=== PATIENT | male | born 1950 | race Caucasian/White ===

== ENCOUNTER 2020-01-08 12:55 | Day surgery (SDC) | payer MEDICARE ==
[~2020-01-08] VITALS: Ht 185.4 cm; Wt 85.4 kg
[~2020-01-08 12:55] MED LIST: SILD25T PO
[2020-01-08] MEDS ORDERED: SYNOVACIN500 MG (13:31)
--- NOTE | 2020-01-08 13:45 | NUR ---
01/08/20 1345 Danita Layne PER PT, HEART RATE NEVER GOES ABOVE 60. DR. LOYD NOTIFIED.
== END 2020-01-08 14:57 | disposition home or self-care (01) ==
LOC: ORSCSDS 12:55
PROVIDERS: Internal Medicine Gastroenterology
PROC: 0DBL8ZX Excision of Transverse Colon, Via Natural or Artificial Opening Endoscopic, Diagnostic (ICD-10-PCS; principal; 2020-01-08 14:15)
PROC: 0DBM8ZX Excision of Descending Colon, Via Natural or Artificial Opening Endoscopic, Diagnostic (ICD-10-PCS; principal; 2020-01-08 14:15)
DX: Z12.11 Encounter for screening for malignant neoplasm of colon (principal); Z80.0 Family history of malignant neoplasm of digestive organs; D12.3 Benign neoplasm of transverse colon; D12.4 Benign neoplasm of descending colon
CPT/HCPCS: 88305; J2704; J7120

== ENCOUNTER 2022-04-12 12:18 | Day surgery (SDC) | payer OTHER ==
[~2022-04-12] VITALS: Ht 185.4 cm; Wt 88.8 kg
[~2022-04-12 12:18] MED LIST changes: +LORA10ER PO; +SYNOVACIN500 MG PO; +Voltaren100 GM TOP
--- NOTE | 2022-04-12 12:58 | NUR ---
Ambulatory in Day Surgery History, Chart, Medications and Allergies reviewed before start of procedure.Patient confirms NPO status and agrees with scheduled surgery. Pre-Op teaching done. Pt verbalizes understanding.
--- NOTE | 2022-04-12 17:14 | NUR ---
SHIFT SUMMARY: PATIENT CAME BACK FROM PACU TODAY AT 1700. POD 0 RIGHT TOTAL KNEE PATIENT IS A&OX4. HE HAS A SOFT BP AND SLIGHTLY LOWER HR BUT OTHERWISE VS ARE WNL AND IS ON RA. PATIENT DENIES PAIN AT THIS TIME. HE HAD A SPINAL DURING THE PROCEDURE AND CAN NOT FEEL FROM HIS HIPS DOWN BUT IS ABLE TO WIGGLE HIS TOES WHEN ASKED. HE HAS GAUZE AND FOAM TAPE ON THE RIGHT HIP THAT ARE C/D/I WITH POLAR PACK IN PLACE. HE IS TOLERATING SMALL AMOUNTS OF PO INTAKE. IS AT BEDSIDE. CALL LIGHT WITHIN REACH.
[2022-04-13 05:16] LABS: BASOPHILS ABSOLUTE AUTO 0.02 K/mm3 (0.00-0.23); BASOPHILS PERCENT AUTO 0 % (0-2); EOSINOPHILS ABSOLUTE AUTO 0.08 K/mm3 (0.00-0.68); EOSINOPHILS PERCENT AUTO 1 % (0-6); Hematocrit 39.1 % (37.0-53.0); Hemoglobin 13.3 g/dL (13.5-17.5); IMMATURE GRAN ABSOLUTE AUTO 0.03 K/mm3 (0.00-0.10); IMMATURE GRAN PERCENT AUTO 0 % (0-1); LYMPHOCYTES ABSOLUTE AUTO 1.75 K/mm3 (0.84-5.20); LYMPHOCYTES PERCENT AUTO 17 % (21-46); MONOCYTES PERCENT AUTO 8 % (4-13); Mean Corpuscular HGB 30.6 pg (26.0-34.0); Mean Corpuscular Volume 90 fL (80-100); Mean Platelet Volume 9.2 fL (9.1-12.4); NEUTROPHILS ABSOLUTE AUTO 7.78 K/mm3 (1.96-9.15); NEUTROPHILS PERCENT AUTO 74 % (41-73); Platelet Count 253 K/mm3 (150-400); RDW Coefficient Variation 12.4 % (11.7-14.2); RDW Standard Deviation 41.3 fL (35.1-46.3); Red Blood Cell Count 4.34 M/mm3 (4.30-5.90); White Blood Cell Count 10.46 K/mm3 (4.00-11.30)
[2022-04-13 05:46] LABS: Magnesium, Blood 1.9 mg/dL (1.6-2.4)
[2022-04-13 05:50] LABS: Bun/Creatinine Ratio 18.7 (12.0-20.0); Calcium, Blood 8.6 mg/dL (8.5-10.1); Creatinine, Blood 0.91 mg/dL (0.60-1.20)
--- NOTE | 2022-04-13 07:17 | NUR ---
SHIFT SUMMARY: PODx1 RIGHT TKA. DRESSING REMAINS C/D/I AT THIS TIME. MEDICATED FOR PAIN X2 DURING THE SHIFT. RESPONDED WELL. TOLERATING PO FLUIDS AND DIET. PT UP TO AMB TO THE BATHROOM. EATING, DRINKING, VOIDING. REPORTS FEELING STEADY WHEN STANDING. POLAR PACK REMAINS IN PLACE. RESTING COMFORTABLY WITH CALL LIGHT IN REACH.
[2022-04-13] MEDS ORDERED: ASPI81CH PO (09:35)
[2022-04-13] MEDS ORDERED: PROM25 PO (09:36)
[2022-04-13] MEDS ORDERED: OXYC5 PO (09:36)
--- NOTE | 2022-04-13 09:39 | NUR ---
Pt. is up walking in his room with a walker. Pt. welcomes my visit. 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 Establish rapport quickly. Facilitate short life review. Pt. displays evidence of being engaged and aware. Prayed with Pt. Pt. verbalized gratitude for the spiritual care visit.
--- NOTE | 2022-04-13 10:42 | NUR ---
DISCHARGE PATIENT CLEARED THERAPY WELL. EATING, DRINKING, AND VOIDING WELL. PAIN MANAGED PER EMAR. DISCUSSED DISCHARGE INSTRUCTIONS AND SENT WITH PATIENT. PATIENT AWAITING RIDE.
--- NOTE | 2022-04-13 11:29 | NUR ---
patient escorted out via w/c
== END 2022-04-13 11:20 | disposition home or self-care (01) ==
LOC: ORSCMMR 12:18 → ORD 14:00 → SURS 16:43 → ORSCMMR 04-13 11:20
PROVIDERS: Orthopaedic Surgery
PROC: 0SRC0J9 Replacement of Right Knee Joint with Synthetic Substitute, Cemented, Open Approach (ICD-10-PCS; principal; 2022-04-12 14:00)
DX: M17.11 Unilateral primary osteoarthritis, right knee (principal)
CPT/HCPCS: 36415; 73560-RT; 80048; 83735; 85025; 97110; 97116; 97161; 97530; A9270; C1713; C1776; J0171; J0690; J0735; J1885; J2370; J2704; J2795; J3010; J3370; J7120

== ENCOUNTER 2024-06-30 12:14 | Day surgery (SDC) | payer OTHER ==
[~2024-06-30] VITALS: Ht 185.4 cm; Wt 89.3 kg
[~2024-06-30 12:14] MED LIST changes: +ASPI81CH PO; +LORA10ER; +Lactated Ringer's 1,000 ML IV ONE; +OXYC5 PO; +PROM25 PO; +Phenylephrine HCl 100 MCG/ML-NS 10MLSYR (1MG/10ML) ONE
[2024-06-30] MEDS ORDERED: TADA10TA PO (13:02)
[2024-06-30] MEDS ORDERED: EPINEPhrine HCl 1 MG/ML 1ML Amp ONE (13:17)
[2024-06-30] MEDS ORDERED: Lactated Ringer's 1,000 ML IV ONE ×2 (13:17→14:11)
[2024-06-30] MEDS ORDERED: Dexamethasone Sod Phos 10 MG/ML 1ML VIAL ONE (13:18)
[2024-06-30] MEDS ORDERED: Ropivacaine 0.5% HCL/PF 5 MG/ML 30ML Vial ONE (13:18)
[2024-06-30] MEDS ORDERED: Ondansetron HCl 2 MG / ML 2ML Vial ONE (13:18)
[2024-06-30] MEDS ORDERED: FentaNYL Citrate 50 MCG/ML 2 ML Injection ONE (13:19)
[2024-06-30] MEDS ORDERED: Midazolam HCl 1MG / ML 2ML Vial ONE (13:19)
[2024-06-30] MEDS ORDERED: Ketorolac Tromethamine 30mg Vial ONE (13:19)
[2024-06-30] MEDS ORDERED: propofoL 20 ML IV ONE (13:19)
[2024-06-30] MEDS ORDERED: CeFAZolin Sodium 2,000 MG VIAL ONE (13:19)
[2024-06-30] MEDS ORDERED: Glycopyrrolate 0.2 MG/ML 5ML VIAL ONE (13:40)
[2024-06-30 14:40] VITALS: BP 127/78
--- NOTE | 2024-06-30 14:41 | NUR ---
06/30/24 1440 Asmita Duffy REPORT FROM LEAT[facility] ORANTES. PT TRANSFERS TO SDU VIA CART. PT DROWSY, BUT ORIENTED. PT DENIES PAIN/NAUSEA, ON RA. NO VISIBLE SIGNS OF DISTRESS NOTED.
== END 2024-06-30 15:23 | disposition home or self-care (01) ==
LOC: ORSCSDS 12:14
PROVIDERS: Orthopaedic Surgery
PROC: 0JBG0ZX Excision of Right Lower Arm Subcutaneous Tissue and Fascia, Open Approach, Diagnostic (ICD-10-PCS; principal; 2024-06-30 13:45)
DX: M65.98 Unspecified synovitis and tenosynovitis, other site (principal); Z79.899 Other long term (current) drug therapy
CPT/HCPCS: 88305; J0171; J0690; J1100; J1885; J2250; J2371; J2405; J2704; J2795; J3010; J7120